=== PATIENT | male | born 1970 | race Caucasian/White ===

== ENCOUNTER 2016-11-23 17:08 | Emergency (ER) | payer OTHER ==
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
[2016-11-23] MEDS ORDERED: Sodium Chloride 0.9% 500 ML IV SCH (17:30)
--- NOTE | 2016-11-23 17:43 | CT ---
PROCEDURE: CT HEAD WITHOUT CONTRAST. HISTORY: stroke eval COMPARISON: None available. TECHNIQUE: Axial computed tomography images were obtained through the head/brain without intravenous contrast. Radiation dose: Total exam DLP = 968.06 mGy-cm. This CT exam was performed using one or more of the following dose reduction techniques: Automated exposure control, adjustment of the mA and/or kV according to patient size, and/or use of iterative reconstruction technique. FINDINGS: HEMORRHAGE: Small, acute pontine hemorrhage on the right. This measures 5 x 9 mm. BRAIN: No mass effect or edema. Evidence of old lacune or infarcts. No appreciable cortical atrophy. VENTRICLES: Unremarkable. No hydrocephalus. CALVARIUM: Unremarkable. PARANASAL SINUSES: Unremarkable as visualized. No significant inflammatory changes. MASTOID AIR CELLS: Unremarkable as visualized. No inflammatory changes. OTHER FINDINGS: None. IMPRESSION: Acute right pontine hemorrhage. Code stroke protocol: Study completed 17:21. Radiologist notified 17:31. Results conveyed verbally at 17:33. I discussed findings with the attending physician in the emergency department Dr. Gomez. Interpretation finalized and available for review 17:42.
[2016-11-23] MEDS ORDERED: Labetalol 5 mg/ml Inj 20ML IVP STA (17:44)
[2016-11-23 17:45] VITALS: TEMP 98.4
[2016-11-23] MEDS ORDERED: Nicardipine 20 MG/200 ML 20 MG/200 ML BAG IV ONE (17:47)
[2016-11-23] MEDS ORDERED: Magnesium Sulfate 2 gm/50 ml 2 GM/50 ML BAG IVPB ONE (17:54)
[2016-11-23 18:09] LABS: BASO # 0.1 K/uL (0.0-0.2); BASO % 0.7 % (0.0-2.0); EOS # 0.5 K/uL (0.0-0.7); EOS % 3.8 % (0.0-4.0); LYMPH # 2.8 K/uL (1.0-4.3); LYMPH % 23.3 % (20.0-40.0); MEAN CELL VOLUME 91.6 fl (80.0-94.0); MEAN CORPUSCULAR HEMOGLOBIN 30.2 pg (27.0-31.0); MEAN PLATELET VOLUME 8.9 fl (7.2-11.7); MONO # 1.1 K/uL (0.0-0.8); MONO % 8.8 % (0.0-10.0); NEUT # 7.6 K/uL (1.8-7.0); NEUT % 63.4 % (50.0-75.0); NRBC % 0.1 % (0.0-0.0); RED CELL DISTRIBUTION WIDTH 13.4 % (11.5-14.5)
[2016-11-23] MEDS ORDERED: Magnesium Sulfate 2 gm/50 ml 2 GM/50 ML BAG ONE (18:12)
[2016-11-23 18:13] LABS: ALB/GLOB RATIO 1.3 (1.0-2.1); ALKALINE PHOSPHATASE 96 U/L (38-126); ALT/SGPT 28 U/L (21-72); AST/SGOT 22 U/L (17-59); BILIRUBIN,TOTAL 0.6 mg/dl (0.2-1.3); BLOOD UREA NITROGEN 16 mg/dl (9-20); CALCIUM 8.8 mg/dL (8.4-10.2); CARBON DIOXIDE 27 mmol/L (22-30); CHLORIDE 103 mmol/L (98-107); CHOLESTEROL 231 mg/dL (0-199); GFR AFRICAN-AMERICAN > 60; GLUCOSE,RANDOM 100 mg/dL (75-110); SODIUM 140 mmol/l (132-148); TOTAL PROTEIN 7.1 G/DL (6.3-8.2)
[2016-11-23] MEDS ORDERED: Etomidate 20 mg/10ml Inj IV ONE ×2 (18:16→18:32)
[2016-11-23] MEDS ORDERED: Rocuronium 10 mg/ml (5 ml) ONE ×2 (18:17→18:18)
[2016-11-23] MEDS ORDERED: Propofol 10 mg/ml 1,000 MG/100 ML VIAL ONE (18:28)
[2016-11-23] MEDS ORDERED: Propofol 10 mg/ml Inj (20 ML) ONE (18:28)
[2016-11-23 18:31] LABS: PARTIAL THROMBOPLASTIN TIME 32.3 Seconds (25.6-37.1)
[2016-11-23] MEDS ORDERED: Propofol 10 mg/ml Inj (20 ML) IV ONE (18:33)
[2016-11-23] MEDS ORDERED: Propofol 10 mg/ml 1,000 MG/100 ML VIAL IV SCH (18:45)
--- NOTE | 2016-11-23 18:53 | PCM.ANES ---
Anesthesia Emergent Intubation - Diagnosis Working Diagnosis:: stroke - Consult Reason for Consult:: ER having difficulty - Intubation Attempts Previous Number of Intubation Attempts:: 1 (unknown) By:: ER Level Of Consciousness: Comatose/Unresponsive - Method of Intubation Intubation Method: Oral ETT - Intubation Devices [place] Scope Used: Yes - Placement Confirmation Breath Sounds Present & Equal Bilaterally: Yes Gurgling Sounds Not Audible at Epigastrum: Yes Positive EtCO2: Yes
--- NOTE | 2016-11-23 18:56 | RAD ---
HISTORY: stroke eval COMPARISON: No prior. FINDINGS: LUNGS: No active pulmonary disease. PLEURA: No significant pleural effusion identified, no pneumothorax apparent. CARDIOVASCULAR: Cardiomegaly. No evidence of acute, significant cardiovascular disease. OSSEOUS STRUCTURES: No significant abnormalities. VISUALIZED UPPER ABDOMEN: Normal. OTHER FINDINGS: None. IMPRESSION: No active disease.
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
[2016-11-23 19:55] VITALS: BP 140/99; PULSE 64; RESP 15
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
--- NOTE | 2016-11-24 10:40 | CARD ---
APPROVED REPORT EKG Measurement Heart [id number] <Conclusion> Sinus bradycardia Inferior infarct, age undetermined Abnormal ECG
[2016-12-14 19:09] VITALS: O2SAT 96
== END 2016-11-23 20:21 | disposition short-term general hospital (02) ==
LOC: H.ER 17:08 → UNDOADMIN 18:56 → H.ERHOLD 18:56 → H.ER 20:21
DX: I61.3 Nontraumatic intracerebral hemorrhage in brain stem (principal); J96.90 Respiratory failure, unspecified, unspecified whether with hypoxia or hypercapnia
CPT/HCPCS: 31500; 70450; 71010; 80053; 80061; 82948; 83036; 84484; 85025; 85610; 85730; 86850; 86900; 93005; 94002; 96374; 99285; J2704; J7040